=== PATIENT | female | born 1990 | race African-American/Black ===

== ENCOUNTER 2017-06-22 05:29 | Emergency (ER) | payer OTHER, SELFPAY ==
[2017-06-22] MEDS ORDERED: predniSONE 20 MG TAB ONE (05:49)
== END 2017-06-22 05:55 | disposition home or self-care (01) ==
LOC: ERS 05:29
DX: L50.9 Urticaria, unspecified (principal)
CPT/HCPCS: 99282; J7506

== ENCOUNTER 2018-08-16 12:25 | Emergency (ER) | payer BC ==
[2018-08-16 12:55] LABS: Hemoglobin 10.8 g/dL (12.0-16.0); Mean Corpuscular HGB CONC 31.7 g/dL (32.0-36.0); Mean Corpuscular Hemoglobin 24.5 pg (27.0-31.0); Mean Corpuscular Volume 77.3 fL (78.0-98.0); Mean Platelet Volume 11.2 fL (7.4-10.4); Platelet Count 235 thou/uL (130-400); RBC Distribution Width 13.9 % (11.5-14.5); Red Blood Cell (RBC) Count 4.39 mill/uL (4.20-5.40); White Blood Cell (WBC) Count 4.1 thou/uL (4.8-10.8)
[2018-08-16 13:18] LABS: #Eosinphils 0.1 thou/uL (0.0-0.7); #Lymphocytes 1.4 thou/uL (1.20-3.40); #Monocytes 0.5 thou/uL (0.11-0.59); #Neutrophils 2.1 thou/uL (1.40-6.50); %Eosinophils 2.1 % (0.0-10.0); %Lymphocytes 33.7 % (21.0-51.0); %Monocytes 11.1 % (0.0-10.0); %Neutrophils 52.1 % (42.0-75.0); Anisocytosis SLIGHT = 6-15 cells (100X) (0-5/hpf); Elliptocytes SLIGHT = 2-5 cells (100X) (0-1/hpf); Hypochromia SLIGHT = 6-15 cells (100X) (0-5/hpf); MDiff Complete? YES; Microcytosis SLIGHT = 6-15 cells (100X) (0-5/hpf); Platelet Morphology Comment Appears Adequate
--- NOTE | 2018-08-16 14:44 | ULT ---
ULTRASOUND PELVIC TRANSVAGINAL WITH DOPPLER: Date: 08/16/18 HISTORY: 7 weeks with vaginal bleeding. COMPARISON: None. TECHNIQUE: Real-time Nieto scale with color Doppler and spectral analysis of the pelvis was performed via transab dominal and transvaginal approach. Patient's HCG measures 28,859. Uterus measures 10.6 x 6.4 x 7.7 cm , with a single, live intrauterine , average ultrasound age of 6 weeks/6 days. Estimated jose e of delivery is 04/05/19. There is a pole with crown-rump length measuring 0.98 cm, 7 weeks/0 days, 43rd percentile. Gest ational sac diameter is 1.67 cm, 6 weeks/4 days. Yolk sac measures 0.23 cm. heart rate documented at 133 beats/minute. There is a small posterior fundal fibroid. Right ovary measures 3.1 x 1.8 x 2.5 cm. Left ovary measures 3.6 x 1.8 x 3.0 cm. Right ovarian corpus luteum is present. No free fluid in the pelvis. IMPRESSION: Single, viable intrauterine , with average ultrasound age of 6 weeks and 6 days. Estimated d ate of delivery is 04/05/19. POS: TPC
[2018-08-16 15:26] LABS: Bilirubin Negative (Negative); Blood, Urine Trace (Negative); Glucose, Urine (Dipstick) Negative (Negative); Leukocyte Negative (Negative); Nitrite Negative (Negative); Protein, Urine (Dipstick) Negative (Neg-Trace); Specific Gravity, Urine 1.025 (1.005-1.030); Urobilinogen 0.2 mg/dL (0.2-1.0); pH, Urine 7.5 (5.0-9.0)
[2018-08-16 15:28] LABS: Clarity Hazy (Clear)
[2018-08-16 15:31] LABS: Bacteria/HPF None Seen HPF (None Seen); Hyaline Casts/LPF 0-3 HYALINE CAST LPF (0-3 Hyaline); Pathc Cast-AUWi Flag 0.43 (0-2.49); RBC/HPF 0-3 HPF (0-3); Squamous Epithelial 0-3 HPF (0-3)
[2018-08-16 15:38] LABS: Crystals/HPF None Seen HPF (Negative)
[2018-08-18 23:54] LABS: Chlamydia by PCR Not Detected (NotDetected); GC by PCR Not Detected (NotDetected)
== END 2018-08-16 15:03 | disposition home or self-care (01) ==
LOC: ERS 12:25
DX: O20.0 Threatened abortion (principal); Z3A.01 Less than 8 weeks gestation of pregnancy
CPT/HCPCS: 36415; 76856; 81003; 81015; 84702; 85025; 86900; 86901; 87491; 87591

== ENCOUNTER 2018-08-20 10:16 | Emergency (ER) | payer BC ==
--- NOTE | 2018-08-20 13:08 | ULT ---
ULTRASUOND PELVIC TRANSVAGINAL WITH DOPPLER: HISTORY: Bleeding. COMPARISON: Ultrasound 08/16/2018. FINDINGS: The uterus measures 9.3 x 6 x 6.8 cm. Right ovary measures 3 x 2.3 x 2.6 cm and the left ovary measu res 2.4 x 1.8 x 2.4 cm. Right ovarian cyst is present measuring 1 cm. There is an intrauterine gestational sac with a pole and yolk. There is a small subchorionic h emorrhage. There are heart tones documented with a heart rate of 137 b.p.m. IMPRESSION: Single viable intrauterine with new small subchorionic hemorrhage. POS: TPC
== END 2018-08-20 12:41 | disposition home or self-care (01) ==
LOC: ERS 10:16
DX: O20.8 Other hemorrhage in early pregnancy (principal); O20.0 Threatened abortion
CPT/HCPCS: 36415; 76856; 84702

== ENCOUNTER 2019-03-29 05:40 | Inpatient (IN) | payer MEDICAID, OTHER ==
[2019-03-29 06:06] VITALS: BMI 29.5
[2019-03-29] MEDS ORDERED: Lidocaine 1% (PF) 30 ML VIAL SC PRN (06:24)
[2019-03-29] MEDS ORDERED: Promethazine HCl 25 MG/ML VIAL IM PRN ×3 (06:25→10:53)
[2019-03-29] MEDS ORDERED: hydrALAZINE 20 MG/ML VIAL SLOW IVP PRN ×2 (06:25→10:53)
[2019-03-29] MEDS ORDERED: Ondansetron PF 4 MG/2 ML Vial IVP PRN ×3 (06:25→10:53)
[2019-03-29] MEDS: Lactated Ringer's 1,000 ML IV SCH ×2 (06:27→07:22)
[2019-03-29] MEDS ORDERED: CEFAZOLIN 2 GM in Premix Bag 1 BAG IVPB SCH (06:30)
[2019-03-29] MEDS ORDERED: Bicitra 30 ML UDCUP PO SCH (06:30)
[2019-03-29 06:45] LABS: Hemoglobin 12.2 g/dL (12.0-16.0); Mean Corpuscular HGB CONC 33.2 g/dL (32.0-36.0); Mean Corpuscular Hemoglobin 25.7 pg (27.0-31.0); Mean Corpuscular Volume 77.4 fL (78.0-98.0); Mean Platelet Volume 12.4 fL (7.4-10.4); Platelet Count 155 thou/uL (130-400); Red Blood Cell (RBC) Count 4.76 mill/uL (4.20-5.40); White Blood Cell (WBC) Count 6.7 thou/uL (4.8-10.8)
[2019-03-29] MEDS ORDERED: ePHEDrine/0.9% NaCl/PF SYRINGE 50 mg/10 ml ONE (07:13)
[2019-03-29] MEDS ORDERED: Oxytocin 10 UNITS/ML VIAL ONE (07:13)
[2019-03-29] MEDS ORDERED: Ondansetron PF 4 MG/2 ML Vial ONE ×2 (07:13→10:03)
[2019-03-29] MEDS ORDERED: MORPHINE 5 MG/10 ML PF VIAL ONE (07:15)
[2019-03-29 07:24] LABS: Syphilis Antibody Nonreactive (Nonreactive); Syphilis Antibody Index 0.04 S/CO (<1.00 Non-Reactive)
--- NOTE | 2019-03-29 07:28 | PDOC.LDHP ---
Labor and Delivery H&P Chief complaint: scheduled section HPI: 28yo at 39w3d by LMP here for RCS. No complaints, no labor or PIH sx. Current gestational age (weeks): 39 Due date: 04/02/19 Dating criteria: last menstrual period Grav: 2 Para: 1 Current complications: none Abnormal US findings: No Past Medical History: denies Current medications: pre- vitamins, iron Previous surgical history: low tranverse CS Allergies/Adverse Reactions: Allergies Allergy/AdvReac Type Severity Reaction Status Date / Time No Known Allergies Allergy Verified 03/29/19 06:05 Social history: none - Physical Exam Vital signs reviewed and normal: yes General: NAD Heart: RRR Lungs: CTAB Abdomen: gravid Extremeties: no edema FHT: category 1 Ansley contractions every: occasiona - OB Labs Blood type: A RH: positive Antibody Screen: negative HIV: negative RPR: negative HEPSAg: negative 1 hour GCT: negative GBS: positive Urine drug screen: negative Rubella: immune - Assessment L&D Assessment: scheduled repeat section - Plan Plan: admit to L&D, to OR for section, informed consent obtained, anesthesia consult for pain management
[2019-03-29 07:37] LABS: HBSAg Index 0.11 S/CO (0-0.99); Hep B Surf Ag Non-Reactive S/CO (NonReactive)
[2019-03-29] MEDS ORDERED: L&D-Morphine 4 MG/ML VIAL SLOW IVP PRN (08:05)
[2019-03-29] MEDS ORDERED: Ondansetron HCl/PF 4 MG/2 ML Vial IVP PRN (08:05)
[2019-03-29] MEDS ORDERED: Meperidine HCl/PF 25 MG/ML VIAL SLOW IVP PRN (08:05)
[2019-03-29] MEDS ORDERED: HYDROmorphone 2 MG/ML VIAL SLOW IVP PRN (08:05)
[2019-03-29] MEDS ORDERED: Promethazine HCl 25 MG SUPP PR PRN (08:06)
[2019-03-29] MEDS ORDERED: diphenhydrAMINE 50 MG/ML VIAL IVP PRN (08:06)
[2019-03-29] MEDS ORDERED: Naloxone HCl 0.4 mg/ml Vial IVP PRN ×2 (08:06)
[2019-03-29] MEDS ORDERED: Naloxone HCl 0.4 mg/ml Vial IV PRN (08:06)
[2019-03-29] MEDS ORDERED: Ketorolac Tromethamine 30 MG/ML VIAL IVP SCH (08:15)
[2019-03-29] MEDS ORDERED: Communication Order-Pharmacy FS SCH (08:15)
--- NOTE | 2019-03-29 08:30 | PDOC.OPDEL ---
OB Operative/Delivery Note Delivery Dr/Surgeon: Ira Assist: Doyle Pre-Delivery Diagnosis: scheduled section Procedure/Post Delivery Dx: repeat low transverse CS Weeks gestation: 39 Anesthesia: spinal - Findings A Sex: male - 1 min: 9 - 5 min: 9 - Additional Findings/Plan Placenta delivered: spontaneous findings: low transverse hysterotomy without extension, normal uterus, normal tubes, normal ovaries Estimated blood loss: 700 Compilations/Other Findings: NC x 1 Post delivery plan: routine recovery
[2019-03-29] MEDS ORDERED: Methylergonovine 0.2 MG/ML VIAL ONE (09:09)
[2019-03-29] MEDS ORDERED: Misoprostol 200 MCG TAB ONE (09:13)
[2019-03-29] MEDS ORDERED: Methylergonovine 0.2 MG/ML VIAL IM SCH (09:15)
[2019-03-29] MEDS: NS / Oxytocin 40 units/1000ml 1,000 ML IV PRN ×2 (09:23→10:38)
[2019-03-29] MEDS ORDERED: Meperidine HCl/PF 25 MG/ML VIAL ONE (09:33)
[2019-03-29] MEDS ORDERED: ePHEDrine 50 MG/ML VIAL ONE (10:03)
[2019-03-29] MEDS ORDERED: Adacel (T-DAP) 0.5 ML SYRINGE IM ONE (10:53)
[2019-03-29] MEDS ORDERED: diphenhydrAMINE 25 MG CAP PO PRN (10:53)
[2019-03-29] MEDS ORDERED: Acetaminophen 325 MG TAB PO PRN (10:53)
[2019-03-29] MEDS ORDERED: Simethicone Chewable 80 MG TAB PO PRN (10:53)
[2019-03-29] MEDS ORDERED: Zolpidem Tartrate 5 MG TAB PO PRN (10:53)
[2019-03-29] MEDS ORDERED: Bisacodyl 10 MG SUPP PR PRN (10:53)
[2019-03-29] MEDS ORDERED: Lanolin Ointment 7 GM TUBE TOP PRN (10:53)
[2019-03-29] MEDS ORDERED: Ferrous Sulfate 325 MG TAB PO SCH (11:30)
[2019-03-29] MEDS ORDERED: Docusate Calcium (SURFAK) 240 MG CAP PO SCH (11:30)
[2019-03-29] MEDS ORDERED: Prenatal Vitamin 1 TAB PO SCH (11:30)
--- NOTE | 2019-03-29 12:16 | OP ---
DATE OF PROCEDURE: 03/29/2019 PREOPERATIVE DIAGNOSES: 1. Intrauterine at 39 weeks and 3 days. 2. Prior section x1, declines trial of labor. 3. Group B Streptococcus positive. POSTOPERATIVE DIAGNOSES: 1. Intrauterine at 39 weeks and 3 days. 2. Prior section x1, declines trial of labor. 3. Group B Streptococcus positive. PROCEDURE PERFORMED: Repeat low-transverse section via Pfannenstiel skin incision. ANESTHESIA: Spinal. INFANTRY UNIT LEADER: Alberta Kwon DO ESTIMATED BLOOD LOSS: 700 mL. COMPLICATIONS: None. DRAINS: Ralph catheter. PATHOLOGY: None. FINDINGS: Male infant cephalic presentation. Nuchal cord x1. Clear amniotic fluid. Apgars of 9 and 9. Weight is pending. Hysterotomy without extension. Excellent hemostasis. Normal uterus, ovaries, and tubes bilaterally. DESCRIPTION OF PROCEDURE: The patient was taken to the operating room, where spinal anesthesia was obtained without difficulty. The patient was prepped and draped in a sterile fashion in the dorsal supine position with leftward tilt. After ensuring adequacy of anesthesia, a Pfannenstiel skin incision was made around the patient's previous incision. The incision was then excised with a knife due to keloid formation. The subcutaneous tissue was incised with the Bovie, and then, the fascia was nicked in the midline with the Bovie. The Hwang scissors were used to extend the fascial incision laterally. The superior aspect of the fascia was tented with two Deanna's and dissected off the rectus with the Hwang scissors. The inferior aspect of the fascia was tented with two Deanna's and dissected off the rectus down to the pubic symphysis with the Hwang's. The incision was manually retracted. The Dominic O retractor was placed. The vesicouterine peritoneum was incised with the Metzenbaum's and the bladder flap was created manually. The lower uterine segment was incised in a transverse fashion and extended with a Wesley maneuver. The 's head was brought to the hysterotomy and delivered with fundal pressure. The 's cord was clamped and infant handed to awaiting Neonatology team. The placenta was allowed to spontaneously deliver. The cord did avulse while pulling traction, and the placenta was grasped manually and delivered with gentle traction. The uterus was then cleared of all clots and debris, and the hysterotomy was repaired with a #1 Monocryl in a running locking fashion with excellent hemostasis. Irrigation of the pelvis was performed and again noted hemostasis. The rectus muscles were examined, and hemostasis was achieved with the Bovie. The fascia was repaired with a 0 PDS in a running fashion with excellent reapproximation. The subcutaneous tissue was irrigated and cauterized of any bleeders and reapproximated with a 2-0 plain gut in a running fashion. The skin was closed with 4-0 Monocryl in subcuticular fashion. Dermabond was applied as well as a pressure dressing. The patient tolerated the procedure well. Sponge, lap, and needle counts correct x2. The patient was taken to recovery in stable condition. The patient received Ancef 2 g prior to the procedure. Job ID: [id number]
[2019-03-29] MEDS: Ketorolac Tromethamine 30 MG/ML VIAL IVP PRN ×2 (17:25→23:42)
[2019-03-29] MEDS: Ferrous Sulfate 325 MG TAB PO SCH (18:16)
[2019-03-29] MEDS ORDERED: HYDROcodone/Acetaminophen 5/325 mg Tablet PO PRN ×2 (20:15)
[2019-03-29] MEDS: Docusate Calcium (SURFAK) 240 MG CAP PO SCH (23:41)
--- NOTE | 2019-03-30 06:05 | PDOC.PP ---
Post Progress Note Post Day #: 1 Subjective: Doing well PP PO intake tolerated: yes Flatus: yes Ambulation: yes Vital Signs (12 hours) Temp Pulse Resp BP Pulse Ox 03/30/19 04:00 98.3 F 73 16 122/67 03/29/19 20:00 98.1 F 72 12 119/77 98 Weight Weight 167 lb Past vitals seen - Physical Examination General: NAD Cardiovascular: no m/r/g Respiratory: clear to auscultation bilaterally Abdominal: + bowel sounds, lochia, no distention, appropriately TTP Extremities: negative homans (B) Neurological: no gross focal deficits Psychiatric: A&Ox3, normal affect Result Diagrams: 03/29/19 06:29 Additional Labs: Post Labs Blood Type A POSITIVE 03/29/19 06:29 Hep Bs Antigen Non-Reactive S/CO (NonReactive) 03/29/19 06:29 (1) delivery due to maternal disorder Code(s): [id number] - Status: Acute - Assessment/Plan POD1 doing well...Incision C/D/I, sutured. Routine postop care for now; ambulate
[2019-03-30 06:22] LABS: Hemoglobin 9.3 g/dL (12.0-16.0); Mean Corpuscular HGB CONC 33.7 g/dL (32.0-36.0); Mean Corpuscular Hemoglobin 26.2 pg (27.0-31.0); Platelet Count 125 thou/uL (130-400); RBC Distribution Width 12.9 % (11.5-14.5); Red Blood Cell (RBC) Count 3.55 mill/uL (4.20-5.40); White Blood Cell (WBC) Count 7.1 thou/uL (4.8-10.8)
[2019-03-30] MEDS: Ferrous Sulfate 325 MG TAB PO SCH ×2 (09:03→16:31)
[2019-03-30] MEDS: Docusate Calcium (SURFAK) 240 MG CAP PO SCH ×2 (09:03→22:10)
[2019-03-30] MEDS: Prenatal Vitamin 1 TAB PO SCH (09:03)
[2019-03-30] MEDS: Ibuprofen 800 MG TAB PO SCH ×2 (14:01→22:10)
[2019-03-31] MEDS: Ibuprofen 800 MG TAB PO SCH ×3 (07:14→20:51)
--- NOTE | 2019-03-31 08:09 | PRG ---
DATE OF SERVICE: 03/31/2019 SUBJECTIVE: The patient is a 28-year-old female, who is now postop day 2 status post a scheduled repeat . She reports that she is tolerating p.o., voiding on her own, ambulating, having moderate pain control. OBJECTIVE: VITAL SIGNS: Today, blood pressure is 126/65, temperature is 98.5, pulse is 78, respiratory rate is 16. GENERAL: She appears to be in no acute distress. She is alert, oriented, cooperative, and pleasant to interact with. GENITOURINARY: Fundus is firm and appropriately tender. Incision is clean, dry, and intact. EXTREMITIES: Nontender, nonedematous. LABORATORY DATA: Post delivery hemoglobin is 9.3, hematocrit 27.7. ASSESSMENT AND PLAN: The patient is a 28-year-old female, postoperative day 2 status post a repeat section. We will continue in-house management and anticipate discharge tomorrow. Job ID: [id number]
[2019-03-31] MEDS: Prenatal Vitamin 1 TAB PO SCH (08:44)
[2019-03-31] MEDS: Docusate Calcium (SURFAK) 240 MG CAP PO SCH ×2 (08:44→20:51)
[2019-03-31] MEDS: Ferrous Sulfate 325 MG TAB PO SCH ×2 (08:44→17:44)
[2019-04-01] MEDS: Ibuprofen 800 MG TAB PO SCH ×2 (06:30→08:36)
[2019-04-01] MEDS: Docusate Calcium (SURFAK) 240 MG CAP PO SCH (08:36)
[2019-04-01] MEDS: Ferrous Sulfate 325 MG TAB PO SCH (08:36)
[2019-04-01] MEDS: Prenatal Vitamin 1 TAB PO SCH (08:36)
[2019-04-01 09:25] VITALS: BP 129/80; TEMP 98.7
--- NOTE | 2019-04-01 10:26 | PDOC.PP ---
Post Progress Note Post Day #: 3 PO intake tolerated: yes Flatus: yes Ambulation: yes Vital Signs (12 hours) Temp Pulse Resp BP Pulse Ox 04/01/19 08:30 98.7 F 82 20 129/80 99 Weight Weight 167 lb - Physical Examination General: NAD Respiratory: non-labored breathing Abdominal: no distention, appropriately TTP Fundus firm & at: umb-2 Extremities: negative homans (B) Skin: CS incision dry & intact Neurological: no gross focal deficits Psychiatric: A&Ox3 Result Diagrams: 03/30/19 05:31 Additional Labs: Post Labs Blood Type A POSITIVE 03/29/19 06:29 Hep Bs Antigen Non-Reactive S/CO (NonReactive) 03/29/19 06:29 - Assessment/Plan POD3 s/p RCS VSSAF Mild acute blood loss anemia, no sx anemia, cont Iron supp Met all postop milestones, pain controlled Rh pos RImm DC home FU 2 and 6 w
== END 2019-04-01 15:30 | disposition home or self-care (01) | DRG 787 ==
LOC: L&D 05:40 → EDSTATUS 07:30 → 3SW 15:23
PROVIDERS: ADMIT Student in an Organized Health Care Education/Training Program; ATTEND Student in an Organized Health Care Education/Training Program
PROC: 10D00Z1 Extraction of Products of Conception, Low, Open Approach (ICD-10-PCS; principal; 2019-03-29)
DX: O34.211 Maternal care for low transverse scar from previous cesarean delivery (principal); D62 Acute posthemorrhagic anemia; O99.824 Streptococcus B carrier state complicating childbirth; O69.81X0 Labor and delivery complicated by cord around neck, without compression, not applicable or unspecified; O99.02 Anemia complicating childbirth; Z3A.39 39 weeks gestation of pregnancy; Z37.0 Single live birth
CPT/HCPCS: 36415; 51702; 85027; 86780; 86850; 86900; 86901; 87340; J0690; J1885; J2175; J2210; J2274; J2405; J2590; J3490